=== PATIENT | male | born 1960 | race Caucasian/White ===

== ENCOUNTER 2017-08-27 14:50 | Emergency (ER) | payer SELFPAY ==
--- NOTE | 2017-08-27 15:58 | RAD ---
TWO VIEWS OF THE RIGHT WRIST: Date: 08-27-17 Comparison: 08-24-17 History: Fracture. FINDINGS: The previously noted distal right radial fracture is again noted. 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 There is resid ual impaction and dorsal angulation, also improved since the prior exam. There is no widening of the scapholunate interval. No new fracture is seen. The fracture of the distal radius likely extends into the distal ulnar joint and the radial carpal joint. IMPRESSION: Distal radial fracture with impaction and displacement/angulation as detailed above. POS: [facility]
== END 2017-08-27 16:54 | disposition home or self-care (01) ==
LOC: ERS 14:50
DX: S52.501A Unspecified fracture of the lower end of right radius, initial encounter for closed fracture (principal); F17.210 Nicotine dependence, cigarettes, uncomplicated; Z79.899 Other long term (current) drug therapy; X58.XXXA Exposure to other specified factors, initial encounter

== ENCOUNTER 2017-09-05 11:24 | Outpatient (CLI) | payer SELFPAY | END 2017-09-05 11:25 | disposition home or self-care (01) | LOC: LABBT 11:24 | PROVIDERS: ATTEND Orthopaedic Surgery | DX: Z01.818 Encounter for other preprocedural examination (principal); S52.501A Unspecified fracture of the lower end of right radius, initial encounter for closed fracture ==

== ENCOUNTER 2017-09-06 05:34 | Observation (INO) | payer SELFPAY ==
[2017-09-05 11:54] VITALS: BMI 27.3
[2017-09-06] MEDS ORDERED: Midazolam HCl 2 mg/2 ml Vial ONE ×2 (06:33→07:26)
[2017-09-06] MEDS ORDERED: Ropivacaine 0.2% HCl/PF 20 ML ONE (06:33)
[2017-09-06] MEDS ORDERED: Lidocaine 1% (PF) 30 ML VIAL ONE (06:33)
[2017-09-06] MEDS ORDERED: Fentanyl 100 MCG/2 ML VIAL ONE ×4 (06:33→10:28)
[2017-09-06] MEDS ORDERED: CEFAZOLIN/Water 2 GM/20 ML SYRINGE ONE (07:12)
[2017-09-06 07:18] LABS: Hematocrit 47.4 % (42.0-52.0); Mean Platelet Volume 8.2 fL (7.4-10.4); Red Blood Cell (RBC) Count 4.65 mill/uL (4.70-6.10); White Blood Cell (WBC) Count 7.2 thou/uL (4.8-10.8)
[2017-09-06 07:26] LABS: Prothrombin Time 14.3 SEC (12.0-14.7)
[2017-09-06] MEDS ORDERED: Fentanyl 250 MCG/5 ML VIAL ONE (07:26)
[2017-09-06 07:27] LABS: PTT 34.8 SEC (22.9-36.1)
[2017-09-06 07:42] LABS: ALT (SGPT) 31 U/L (8-55); AST (SGOT) 67 U/L (5-34); Alkaline Phosphatase 130 U/L (40-150); Bilirubin, Direct 0.4 mg/dL (0.1-0.3); Bilirubin, Total 1.2 mg/dL (0.2-1.2); Protein, Total 7.5 g/dL (6.0-8.3)
[2017-09-06] MEDS ORDERED: Bupivacaine/Epinephrine 0.25% 30 ML VIAL ONE (08:33)
[2017-09-06] MEDS ORDERED: Ondansetron ODT 4 MG TAB PO PRN (08:45)
[2017-09-06] MEDS ORDERED: Acetaminophen 325 MG TAB PO PRN (08:45)
[2017-09-06] MEDS ORDERED: Promethazine HCl 25 MG/ML VIAL SLOW IVP PRN (08:55)
[2017-09-06] MEDS ORDERED: Promethazine HCl 25 MG/ML VIAL IM PRN (08:55)
[2017-09-06] MEDS ORDERED: HYDROmorphone 2 MG/ML VIAL SLOW IVP PRN (08:55)
[2017-09-06] MEDS ORDERED: Ondansetron HCl/PF 4 MG/2 ML Vial IVP PRN (08:55)
--- NOTE | 2017-09-06 10:08 | OP ---
DATE OF OPERATION: 09/06/2017 OPERATION: Open reduction and internal fixation of right distal radius fracture. PREOPERATIVE DIAGNOSIS: Right distal radius fracture with displacement. POSTOPERATIVE DIAGNOSIS: Right distal radius fracture with displacement. COMPLICATIONS: None. ESTIMATED BLOOD LOSS: Minimal. SURGEON: Jeremias Smith M.D. ANESTHESIA: General. INDICATIONS: Mr. Smith is a 57-year-old male who fell. He sustained a fracture of the right distal radius with dorsal displacement. He was indicated for open reduction and internal fixation to restor e anatomic alignment and promote healing. Risks have been reviewed in detail. He has elected to pro ceed with the operation. Risks include infection, pain, scarring, bleeding, malunion, nonunion, hard tilley failure and others. DESCRIPTION OF PROCEDURE: Mr. Smith was identified in the preoperative holding area. His correct ex tremity was marked. He was carried to the operating room. He was positioned in supine. General ane sthesia was induced. A multidisciplinary timeout was performed. The right upper extremity was prepp ed and draped in the usual sterile fashion. Next, we began the procedure with a volar approach to th e distal radius. We dissected down through the subcutaneous tissues to the FCR tendon. The tendon s unique was opened. We then elevated the pronator quadratus tendon from the distal radius. This expos ed the underlying fracture. We mobilized the fracture with an elevator. We reduced the fracture jorge k into its anatomic position. We checked x-ray images confirming this. At this point, we applied a [employer] volar distal radius plate. A proximal screw was placed followed by multiple distal locking s crews. We took x-ray images. Finally, we finished the proximal screws. All hardware was appropriat e. We took final images and then thoroughly irrigated with copious lavage. At this point, we closed with 2-0 Vicryl suture followed by lester. A sterile dressing was applied. The patient was taken to the recovery room in good condition. IMPLANTS: [employer]ynthe[employer] volar distal radius plate was used, 3 hole.
--- NOTE | 2017-09-06 12:01 | RAD ---
RIGHT WRIST 2 VIEWS: Date: 09/06/17 HISTORY: Intraoperative films. FINDINGS: A distal radial fracture has been fixed with plate and screws. Alignment appears satisfactory. IMPRESSION: Open reduction and internal fixation of distal radial fracture with plate and screws. POS: [facility]
[2017-09-06] MEDS: CEFAZOLIN/Water 2 GM/20 ML SYRINGE SLOW IVP SCH ×2 (15:07→22:02)
[2017-09-06] MEDS ORDERED: Propofol 200 MG/20 ML VIAL ONE (15:13)
[2017-09-06] MEDS ORDERED: Lidocaine 1% PF 5 ML VIAL ONE (15:13)
[2017-09-06] MEDS ORDERED: Ondansetron HCl/PF 4 MG/2 ML Vial ONE (15:13)
[2017-09-06] MEDS ORDERED: Bupivacaine PF 0.5% 30 ML VIAL ONE (15:57)
[2017-09-07] MEDS: HYDROcodone/Acetaminophen 10/325 mg Tablet PO PRN ×2 (06:14→10:02)
[2017-09-07 08:52] VITALS: BP 118/73; TEMP 98.4
[2017-09-07] MEDS ORDERED: FLU VACC QS2017-18 36 mo. & older 0.5 ML SYRINGE IM ONE (09:00)
--- NOTE | 2017-09-09 12:32 | DIS ---
DATE OF ADMISSION: 09/06/2017 DATE OF DISCHARGE: 09/07/2017 HOSPITAL COURSE: Mr. Smith is a 57-year-old male who fractured his right distal radius. He underwen t open reduction and internal fixation of the distal radius fracture. He did well during and after s urgery. He had no transportation and so was admitted to the hospital overnight. He was comfortable and pain was controlled at the time of discharge. He was tolerating an oral diet. DISCHARGE INSTRUCTIONS: The patient was discharged to home in a splint. He will keep this clean and dry. Follow up in 10-14 days for splint removal and suture removal. He will have adequate pain con trol.
== END 2017-09-07 12:16 | disposition home or self-care (01) ==
LOC: SDC 05:34 → 3SE 11:35 → SURG B 11:54
PROVIDERS: ADMIT Orthopaedic Surgery; ATTEND Orthopaedic Surgery
PROC: 0PSH04Z Reposition Right Radius with Internal Fixation Device, Open Approach (ICD-10-PCS; principal; 2017-09-07)
DX: S52.531A Colles' fracture of right radius, initial encounter for closed fracture (principal); Z98.890 Other specified postprocedural states; W13.8XXD Fall from, out of or through other building or structure, subsequent encounter
CPT/HCPCS: 76001; 80076; 85027; 85610; 85730; 93005; 93010; 96374; 96376; C1713; G0378; J2001; J2250; J2405; J2704; J2795; J3010; S0020

== ENCOUNTER 2018-04-28 07:04 | Emergency (ER) | payer SELFPAY ==
[2018-04-28] MEDS ORDERED: HYDROcodone/Acetaminophen 5/325 mg Tablet ONE (07:19)
[2018-04-28] MEDS ORDERED: Cyclobenzaprine 10 MG TAB ONE (07:19)
== END 2018-04-28 07:29 | disposition home or self-care (01) ==
LOC: ERS 07:04
DX: M54.5 Low back pain (principal); F17.210 Nicotine dependence, cigarettes, uncomplicated
CPT/HCPCS: 99283

== ENCOUNTER 2018-04-29 07:47 | Emergency (ER) | payer SELFPAY ==
--- NOTE | 2018-04-29 10:01 | RAD ---
RIGHT HAND THREE VIEWS: HISTORY: Pain. Cannot extend first DIP. COMPARISON: None. FINDINGS: Prior plate and screw fixation fracture. There does appear to be intraarticular extension of the third from lateral screw and possibly into the radial carpal joint. Erosion of the ulnar styloi d. Mild negative ulnar variance. There are radiopaque foreign objects within the soft tissues, between the second and third metacarpal heads. IMPRESSION: 1. Radiopaque foreign body within the webbing between the second and third metacarpal heads, measuri ng approximately 3 mm. 2. Third from lateral screw possibly within the radioscaphoid articulation. POS: [facility]
== END 2018-04-29 10:19 | disposition home or self-care (01) ==
LOC: ERS 07:47
DX: M79.644 Pain in right finger(s) (principal); Z79.899 Other long term (current) drug therapy

== ENCOUNTER 2018-06-20 08:15 | Emergency (ER) | payer SELFPAY | END 2018-06-20 09:06 | disposition home or self-care (01) | LOC: ERS 08:15 | DX: L30.9 Dermatitis, unspecified (principal); F17.210 Nicotine dependence, cigarettes, uncomplicated | CPT/HCPCS: 99282 ==

== ENCOUNTER 2020-08-19 09:05 | Emergency (ER) | payer SELFPAY ==
[2020-08-19] MEDS ORDERED: Ketorolac Tromethamine 30 MG/ML VIAL ONE (10:10)
[2020-08-19] MEDS ORDERED: Acetaminophen 500 MG TAB ONE (10:10)
[2020-08-19 10:13] LABS: #Basophils 0.1 thou/uL (0.0-0.2); #Eosinphils 0.3 thou/uL (0.0-0.7); #Lymphocytes 2.3 thou/uL (1.20-3.40); #Monocytes 1.1 thou/uL (0.11-0.59); #Neutrophils 4.1 thou/uL (1.40-6.50); %Basophils 0.9 % (0.0-1.0); %Eosinophils 3.3 % (0.0-10.0); %Lymphocytes 29.6 % (21.0-51.0); %Monocytes 14.2 % (0.0-10.0); Hemoglobin 16.6 g/dL (14.0-18.0); Mean Corpuscular HGB CONC 33.1 g/dL (32.0-36.0); Mean Corpuscular Hemoglobin 33.2 pg (27.0-31.0); Mean Platelet Volume 8.5 fL (7.4-10.4); Platelet Count 177 thou/uL (130-400); Red Blood Cell (RBC) Count 5.01 mill/uL (4.70-6.10); White Blood Cell (WBC) Count 7.9 thou/uL (4.8-10.8)
[2020-08-19 10:19] LABS: ALT (SGPT) 26 U/L (8-55); AST (SGOT) 99 U/L (5-34); Albumin 3.2 g/dL (3.5-5.0); Alkaline Phosphatase 165 U/L (40-110); Anion Gap 13 mmol/L (10-20); BUN (Urea Nitrogen) 15 mg/dL (8.4-25.7); Bilirubin, Total 0.8 mg/dL (0.2-1.2); Calc. Creatinine Clearance 0 mL/min (70-130); Calcium 9.1 mg/dL (7.8-10.44); Carbon Dioxide 26 mmol/L (22-29); Chloride 101 mmol/L (98-107); Estimated GFR-MDRD Greater than 90; Globulin 5.5 g/dL (2.4-3.5); Glucose 87 mg/dL (70-105); Lipase 33 U/L (8-78); Potassium 4.6 mmol/L (3.5-5.1); Protein, Total 8.7 g/dL (6.0-8.3); Sodium 135 mmol/L (136-145)
--- NOTE | 2020-08-19 10:27 | RAD ---
XR Chest 1 View Portable History: Shortness of breath Comparison: None. Findings: Mild lung hypoinflation. Peripheral scar lower lobes. Heart size upper limits of normal. Va scular crowding along the hilum. No pneumothorax. Impression: 1. 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 2. Lung hypoinflation with spurious enlargement of the cardiac silhouette and vascular crowding.
[2020-08-19 10:38] LABS: Bilirubin Negative (Negative); Blood, Urine Negative (Negative); Clarity Clear (Clear); Glucose, Urine (Dipstick) Normal (Negative); Ketone, Urine Negative (Negative); Leukocyte Negative Leu/uL (Negative); Nitrite Negative (Negative); Protein, Urine (Dipstick) Negative (Neg-Trace); Specific Gravity, Urine 1.022 (1.002-1.036); Urobilinogen Normal mg/dL (Less than 2)
== END 2020-08-19 11:30 | disposition home or self-care (01) ==
LOC: ERS 09:05
DX: M54.6 Pain in thoracic spine (principal); G89.29 Other chronic pain; F17.210 Nicotine dependence, cigarettes, uncomplicated; B19.20 Unspecified viral hepatitis C without hepatic coma
CPT/HCPCS: 71045; 80053; 81003; 83690; 84484; 85025; 85379; 93005; 94760; 96374; J1885

== ENCOUNTER 2021-04-05 09:03 | Inpatient (IN) | payer SELFPAY ==
[2021-04-05 09:57] LABS: #Basophils 0.1 thou/uL (0.0-0.2); #Eosinphils 0.4 thou/uL (0.0-0.7); #Lymphocytes 3.3 thou/uL (1.20-3.40); #Monocytes 1.3 thou/uL (0.11-0.59); %Basophils 0.8 % (0.0-1.0); %Eosinophils 3.2 % (0.0-10.0); %Lymphocytes 27.3 % (21.0-51.0); %Monocytes 11.1 % (0.0-10.0); %Neutrophils 57.6 % (42.0-75.0); Hemoglobin 14.8 g/dL (14.0-18.0); Mean Corpuscular HGB CONC 33.2 g/dL (32.0-36.0); Mean Corpuscular Hemoglobin 34.6 pg (27.0-31.0); Mean Platelet Volume 8.3 fL (7.4-10.4); Platelet Count 210 thou/uL (130-400); RBC Distribution Width 13.2 % (11.5-14.5); Red Blood Cell (RBC) Count 4.28 mill/uL (4.70-6.10); White Blood Cell (WBC) Count 12.1 thou/uL (4.8-10.8)
[2021-04-05 10:17] LABS: ALT (SGPT) 23 U/L (8-55); AST (SGOT) 144 U/L (5-34); Albumin 2.4 g/dL (3.4-4.8); Alkaline Phosphatase 137 U/L (40-110); Anion Gap 13 mmol/L (10-20); BUN (Urea Nitrogen) 44 mg/dL (8.4-25.7); Bilirubin, Total 1.2 mg/dL (0.2-1.2); Calc. Creatinine Clearance 0 mL/min (70-130); Calcium 8.3 mg/dL (7.8-10.44); Carbon Dioxide 22 mmol/L (23-31); Chloride 107 mmol/L (98-107); Globulin 4.6 g/dL (2.4-3.5); Glucose 86 mg/dL (80-115); Potassium 5.7 mmol/L (3.5-5.1); Sodium 136 mmol/L (136-145)
[2021-04-05] MEDS ORDERED: Pantoprazole 40 MG VIAL ONE (13:09)
[2021-04-05 13:27] LABS: Bilirubin Negative (Negative); Blood, Urine Negative (Negative); Clarity Clear (Clear); Glucose, Urine (Dipstick) Normal (Negative); Ketone, Urine 10 mg/dL (Negative); Leukocyte Negative Leu/uL (Negative); Nitrite Negative (Negative); Protein, Urine (Dipstick) Negative (Neg-Trace); Specific Gravity, Urine 1.032 (1.002-1.036); Urobilinogen Normal mg/dL (Less than 2)
[2021-04-05] MEDS ORDERED: Ondansetron ODT 4 MG TAB PO PRN (14:30)
[2021-04-05] MEDS ORDERED: Ondansetron PF 4 MG/2 ML Vial IVP PRN (14:30)
[2021-04-05 14:54] LABS: Amphetamine Detected (NotDetected); Benzodiazepine Screen Not Detected (NotDetected); Cocaine Metabolite Screen Not Detected (NotDetected); Medtox Reader # READER 4; Methadone Not Detected (NotDetected); Methamphetamine Detected (NotDetected); Opiate Screen Not Detected (NotDetected); Phencyclidine (PCP) Not Detected (NotDetected); THC/Cannabinoid Screen Not Detected (NotDetected); Tricyclic Screen Not Detected (NotDetected)
[2021-04-05 14:55] LABS: Barbiturates Screen Not Detected (NotDetected); Medtox Control Line Valid? VALID (VALID); Oxycodone Screen Not Detected (NotDetected)
[2021-04-05 15:00] LABS: Hemoglobin 14.2 g/dL (14.0-18.0)
[2021-04-05 15:11] LABS: INR-International Normal Ratio 1.2; PTT 36.6 sec (22.9-36.1); Prothrombin Time 15.2 sec (12.0-14.7)
[2021-04-05 15:38] LABS: Magnesium 1.5 mg/dL (1.6-2.6); Phosphorus 2.6 mg/dL (2.3-4.7)
[2021-04-05] MEDS ORDERED: Magnesium 2 GM/50 ML 2 GM in Premix Bag 1 BAG IVPB SCH (16:00)
[2021-04-05] MEDS ORDERED: Magnesium 2 GM/50 ML BAG (IN WATER) ONE (18:04)
[2021-04-05] MEDS: Sodium Chloride 0.9% 1,000 ML IV SCH (19:30)
[2021-04-05 20:28] LABS: SARS-CoV-2 NAA Rapid Test Not Detected (NotDetected)
[2021-04-05 20:28] LABS: Hemoglobin 13.4 g/dL (14.0-18.0)
[2021-04-05 22:27] VITALS: BMI 25.9
[2021-04-05] MEDS: Pantoprazole 40 MG VIAL IVP SCH (22:30)
[2021-04-06] MEDS: Sodium Chloride 0.9% 1,000 ML IV SCH (04:43)
[2021-04-06 05:21] LABS: #Basophils 0.1 thou/uL (0.0-0.2); #Eosinphils 0.4 thou/uL (0.0-0.7); #Lymphocytes 4.9 thou/uL (1.20-3.40); %Basophils 1.1 % (0.0-1.0); %Eosinophils 3.1 % (0.0-10.0); %Lymphocytes 39.3 % (21.0-51.0); %Monocytes 8.2 % (0.0-10.0); %Neutrophils 48.3 % (42.0-75.0); Hemoglobin 12.3 g/dL (14.0-18.0); Mean Corpuscular HGB CONC 34.1 g/dL (32.0-36.0); Mean Corpuscular Hemoglobin 35.3 pg (27.0-31.0); Mean Platelet Volume 8.1 fL (7.4-10.4); Platelet Count 191 thou/uL (130-400); RBC Distribution Width 13.2 % (11.5-14.5); White Blood Cell (WBC) Count 12.5 thou/uL (4.8-10.8)
[2021-04-06 05:45] LABS: ALT (SGPT) 25 U/L (8-55); AST (SGOT) 226 U/L (5-34); Albumin 2.1 g/dL (3.4-4.8); Alkaline Phosphatase 119 U/L (40-110); Anion Gap 11 mmol/L (10-20); BUN (Urea Nitrogen) 37 mg/dL (8.4-25.7); Calc. Creatinine Clearance 105 mL/min (70-130); Calcium 8.1 mg/dL (7.8-10.44); Carbon Dioxide 22 mmol/L (23-31); Chloride 110 mmol/L (98-107); Globulin 3.9 g/dL (2.4-3.5); Glucose 83 mg/dL (80-115); Potassium 4.8 mmol/L (3.5-5.1); Sodium 138 mmol/L (136-145)
[2021-04-06] MEDS ORDERED: Acetaminophen 500 MG TAB PO PRN (08:08)
[2021-04-06] MEDS ORDERED: Senokot S 8.6-50 MG TAB PO PRN (08:08)
[2021-04-06] MEDS ORDERED: HYDROcodone/Acetaminophen 5/325 mg Tablet PO PRN (08:08)
[2021-04-06] MEDS ORDERED: Loratadine 10 MG TAB PO PRN (08:08)
[2021-04-06] MEDS ORDERED: Calcium Carbonate 500 MG ChewTAB PO PRN (08:08)
[2021-04-06] MEDS ORDERED: Loperamide HCl 2 MG CAP PO PRN (08:08)
[2021-04-06] MEDS ORDERED: hydrALAZINE 20 MG/ML VIAL SLOW IVP PRN (08:08)
[2021-04-06] MEDS ORDERED: Temazepam 15 MG CAP PO PRN (08:08)
[2021-04-06] MEDS ORDERED: Bisacodyl 5 MG TAB PO PRN (08:08)
[2021-04-06] MEDS ORDERED: GUAIFENESIN SF SOLN 200 MG/10 ML UDCUP PO PRN (08:08)
[2021-04-06] MEDS ORDERED: Cepastat Lozenges 1 LOZ PO PRN (08:08)
[2021-04-06] MEDS ORDERED: Sodium Chloride 0.65% Nasal 44 ML BOT EA NARE PRN (08:08)
[2021-04-06] MEDS ORDERED: Lorazepam 2 MG/ML VIAL IM PRN (09:07)
[2021-04-06] MEDS ORDERED: Lorazepam 1 MG TAB PO PRN (09:07)
[2021-04-06] MEDS ORDERED: Lorazepam 2 MG/ML VIAL SLOW IVP PRN (09:07)
[2021-04-06] MEDS: Cyanocobalamin (Vitamin B-12) 1,000 MCG TAB PO SCH (10:22)
[2021-04-06] MEDS: Folic Acid 1 MG TAB PO SCH (10:22)
[2021-04-06] MEDS: Thiamine 100 MG TAB PO SCH (10:22)
[2021-04-06] MEDS: Pantoprazole 40 MG VIAL IVP SCH (10:26)
[2021-04-07 05:19] LABS: #Basophils 0.1 thou/uL (0.0-0.2); #Eosinphils 0.3 thou/uL (0.0-0.7); #Lymphocytes 3.2 thou/uL (1.20-3.40); #Monocytes 1.1 thou/uL (0.11-0.59); #Neutrophils 5.2 thou/uL (1.40-6.50); %Basophils 0.7 % (0.0-1.0); %Eosinophils 3.1 % (0.0-10.0); %Lymphocytes 32.6 % (21.0-51.0); %Monocytes 11.1 % (0.0-10.0); %Neutrophils 52.5 % (42.0-75.0); Hemoglobin 11.2 g/dL (14.0-18.0); Mean Corpuscular HGB CONC 33.4 g/dL (32.0-36.0); Mean Corpuscular Hemoglobin 34.3 pg (27.0-31.0); Mean Platelet Volume 8.4 fL (7.4-10.4); Platelet Count 169 thou/uL (130-400); Red Blood Cell (RBC) Count 3.26 mill/uL (4.70-6.10); White Blood Cell (WBC) Count 9.8 thou/uL (4.8-10.8)
[2021-04-07 05:46] LABS: ALT (SGPT) 20 U/L (8-55); AST (SGOT) 191 U/L (5-34); Albumin 2.3 g/dL (3.4-4.8); Alkaline Phosphatase 121 U/L (40-110); Anion Gap 11 mmol/L (10-20); BUN (Urea Nitrogen) 28 mg/dL (8.4-25.7); Bilirubin, Total 0.8 mg/dL (0.2-1.2); Calc. Creatinine Clearance 96 mL/min (70-130); Calcium 7.8 mg/dL (7.8-10.44); Carbon Dioxide 20 mmol/L (23-31); Chloride 109 mmol/L (98-107); Globulin 3.9 g/dL (2.4-3.5); Glucose 105 mg/dL (80-115); Magnesium 1.6 mg/dL (1.6-2.6); Phosphorus 2.8 mg/dL (2.3-4.7); Potassium 3.8 mmol/L (3.5-5.1); Protein, Total 6.2 g/dL (5.8-8.1); Sodium 136 mmol/L (136-145)
[2021-04-07 07:58] VITALS: BP 92/53; TEMP 98.5
[2021-04-07] MEDS: Thiamine 100 MG TAB PO SCH (09:53)
[2021-04-07] MEDS: Folic Acid 1 MG TAB PO SCH (09:53)
[2021-04-07] MEDS: Cyanocobalamin (Vitamin B-12) 1,000 MCG TAB PO SCH (09:53)
== END 2021-04-07 12:05 | disposition home or self-care (01) | DRG 917 ==
LOC: ERS 09:03 → ERHOLD 14:46 → 2SE 21:40
PROVIDERS: ADMIT Family Medicine; ATTEND Internal Medicine
DX: T51.0X1A Toxic effect of ethanol, accidental (unintentional), initial encounter (principal); K29.71 Gastritis, unspecified, with bleeding; Z20.822 Contact with and (suspected) exposure to COVID-19; F17.210 Nicotine dependence, cigarettes, uncomplicated; F10.10 Alcohol abuse, uncomplicated; E87.5 Hyperkalemia; F15.10 Other stimulant abuse, uncomplicated; B18.2 Chronic viral hepatitis C; Z71.51 Drug abuse counseling and surveillance of drug abuser
CPT/HCPCS: 0240U; 36415; 80053; 80306; 81003; 82607; 82746; 83735; 84100; 85025; 85610; 85730; 86850; 86900; 86901; 96374; C9113; J3475

== ENCOUNTER 2021-06-25 19:21 | Inpatient (IN) | payer SELFPAY ==
[~2021-06-25 19:21] MED LIST: Iopamidol-370 76% 500 ML 1 ML ONE
[2021-06-25 20:45] LABS: #Basophils 0.1 thou/uL (0.0-0.2); #Eosinphils 0.1 thou/uL (0.0-0.7); #Lymphocytes 2.4 thou/uL (1.20-3.40); #Monocytes 0.8 thou/uL (0.11-0.59); #Neutrophils 5.6 thou/uL (1.40-6.50); %Basophils 0.8 % (0.0-1.0); %Eosinophils 1.4 % (0.0-10.0); %Lymphocytes 27.1 % (21.0-51.0); %Monocytes 8.6 % (0.0-10.0); %Neutrophils 62.2 % (42.0-75.0); Hemoglobin 11.6 g/dL (14.0-18.0); INR-International Normal Ratio 1.1; Mean Corpuscular HGB CONC 29.8 g/dL (32.0-36.0); Mean Corpuscular Volume 90.7 fL (78.0-98.0); Platelet Count 376 thou/uL (130-400); Prothrombin Time 14.7 sec (12.0-14.7); RBC Distribution Width 20.9 % (11.5-14.5)
[2021-06-25 20:57] LABS: ALT (SGPT) 11 U/L (8-55); AST (SGOT) 247 U/L (5-34); Albumin 2.1 g/dL (3.4-4.8); Alkaline Phosphatase 353 U/L (40-110); Anion Gap 12 mmol/L (10-20); BUN (Urea Nitrogen) 15 mg/dL (8.4-25.7); Bilirubin, Total 1.3 mg/dL (0.2-1.2); Calc. Creatinine Clearance 0 mL/min (70-130); Carbon Dioxide 23 mmol/L (23-31); Chloride 104 mmol/L (98-107); Globulin 5.7 g/dL (2.4-3.5); Glucose 138 mg/dL (80-115); Potassium 4.2 mmol/L (3.5-5.1); Protein, Total 7.8 g/dL (5.8-8.1); Sodium 135 mmol/L (136-145)
[2021-06-25] MEDS ORDERED: Morphine 4 MG/ML VIAL ONE (22:40)
[2021-06-25] MEDS ORDERED: Furosemide 20 MG/2 ML VIAL ONE (22:41)
[2021-06-25] MEDS ORDERED: Enoxaparin Sodium 80 MG/0.8 ML SYRINGE SC SCH (22:45)
[2021-06-25] MEDS ORDERED: Bisacodyl 10 MG SUPP PR PRN (22:54)
[2021-06-25] MEDS ORDERED: Acetaminophen 325 MG TAB PO PRN (22:54)
[2021-06-25] MEDS ORDERED: Communication Order-Pharmacy FS PRN (22:54)
[2021-06-25] MEDS ORDERED: Ondansetron PF 4 MG/2 ML Vial IVP PRN (22:54)
[2021-06-25] MEDS ORDERED: hydrALAZINE 20 MG/ML VIAL SLOW IVP PRN (23:00)
[2021-06-25] MEDS ORDERED: Morphine 2 MG/ML VIAL SLOW IVP PRN (23:00)
[2021-06-25] MEDS ORDERED: hydrOXYzine 25 MG TAB PO PRN (23:05)
[2021-06-25] MEDS ORDERED: Enoxaparin Sodium 80 MG/0.8 ML SYRINGE ONE (23:18)
[2021-06-25] MEDS ORDERED: Albuterol Sulfate 1.25 MG/3 ML NEB NEB PRN (23:52)
[2021-06-26] MEDS: Morphine 2 MG/ML VIAL SLOW IVP PRN ×2 (04:30→21:04)
[2021-06-26 05:03] VITALS: BMI 28.0
[2021-06-26] MEDS: Nicotine 21 MG PATCH TD SCH ×2 (05:37→10:38)
[2021-06-26 08:37] LABS: #Basophils 0.1 thou/uL (0.0-0.2); #Eosinphils 0.1 thou/uL (0.0-0.7); #Lymphocytes 2.4 thou/uL (1.20-3.40); #Monocytes 0.7 thou/uL (0.11-0.59); #Neutrophils 5.8 thou/uL (1.40-6.50); %Basophils 0.7 % (0.0-1.0); %Eosinophils 1.3 % (0.0-10.0); %Lymphocytes 26.4 % (21.0-51.0); %Monocytes 7.2 % (0.0-10.0); %Neutrophils 64.4 % (42.0-75.0); Mean Corpuscular HGB CONC 30.9 g/dL (32.0-36.0); Mean Corpuscular Hemoglobin 27.6 pg (27.0-31.0); Mean Corpuscular Volume 89.3 fL (78.0-98.0); Mean Platelet Volume 7.8 fL (7.4-10.4); Platelet Count 337 thou/uL (130-400); RBC Distribution Width 20.3 % (11.5-14.5); Red Blood Cell (RBC) Count 3.97 mill/uL (4.70-6.10)
[2021-06-26 08:56] LABS: ALT (SGPT) 11 U/L (8-55); AST (SGOT) 229 U/L (5-34); Albumin 1.9 g/dL (3.4-4.8); Alkaline Phosphatase 317 U/L (40-110); Anion Gap 12 mmol/L (10-20); BUN (Urea Nitrogen) 15 mg/dL (8.4-25.7); Bilirubin, Total 1.8 mg/dL (0.2-1.2); Calc. Creatinine Clearance 128 mL/min (70-130); Calcium 7.9 mg/dL (7.8-10.44); Carbon Dioxide 23 mmol/L (23-31); Chloride 104 mmol/L (98-107); Globulin 5.1 g/dL (2.4-3.5); Glucose 87 mg/dL (80-115); Potassium 4.2 mmol/L (3.5-5.1); Sodium 135 mmol/L (136-145)
[2021-06-26] MEDS: Enoxaparin Sodium 100 MG/ML SYRINGE SC SCH ×2 (10:35→20:54)
[2021-06-26 13:16] LABS: SARS-CoV-2 PCR by NAA Not Detected (NotDetected)
[2021-06-27] MEDS: Enoxaparin Sodium 100 MG/ML SYRINGE SC SCH ×2 (08:13→21:00)
[2021-06-27 08:44] LABS: ALT (SGPT) 10 U/L (8-55); AST (SGOT) 233 U/L (5-34); Albumin 1.9 g/dL (3.4-4.8); Alkaline Phosphatase 330 U/L (40-110); Anion Gap 12 mmol/L (10-20); BUN (Urea Nitrogen) 17 mg/dL (8.4-25.7); Bilirubin, Total 1.7 mg/dL (0.2-1.2); Calc. Creatinine Clearance 123 mL/min (70-130); Calcium 7.9 mg/dL (7.8-10.44); Carbon Dioxide 23 mmol/L (23-31); Chloride 103 mmol/L (98-107); Globulin 5.2 g/dL (2.4-3.5); Glucose 116 mg/dL (80-115); Protein, Total 7.1 g/dL (5.8-8.1); Sodium 134 mmol/L (136-145)
[2021-06-27] MEDS ORDERED: Warfarin Sodium 7.5 MG TAB PO SCH (17:45)
[2021-06-27 18:18] LABS: INR-International Normal Ratio 1.2; Prothrombin Time 15.5 sec (12.0-14.7)
[2021-06-27] MEDS: Morphine 2 MG/ML VIAL SLOW IVP PRN (19:28)
[2021-06-27] MEDS: Nicotine 21 MG PATCH TD SCH (21:00)
[2021-06-28] MEDS: Morphine 2 MG/ML VIAL SLOW IVP PRN ×2 (04:30→09:55)
[2021-06-28 05:04] LABS: INR-International Normal Ratio 1.2; Prothrombin Time 15.1 sec (12.0-14.7)
[2021-06-28] MEDS ORDERED: Apixaban 5 MG TAB PO SCH (09:00)
[2021-06-28 10:14] VITALS: BP 116/74; TEMP 99.1
[2021-06-28] MEDS ORDERED: Warfarin Sodium 7.5 MG TAB PO SCH (17:00)
== END 2021-06-28 15:45 | disposition home or self-care (01) | DRG 435 ==
LOC: ERS 19:21 → SURG B 23:32 → ONC 06-27 02:22
PROVIDERS: ADMIT Internal Medicine; ATTEND Internal Medicine
DX: C22.0 Liver cell carcinoma (principal); I81 Portal vein thrombosis; C78.01 Secondary malignant neoplasm of right lung; C79.51 Secondary malignant neoplasm of bone; Z20.822 Contact with and (suspected) exposure to COVID-19; B18.2 Chronic viral hepatitis C; F19.11 Other psychoactive substance abuse, in remission; Z79.899 Other long term (current) drug therapy
CPT/HCPCS: 36415; 71045; 74177; 76705; 80053; 82105; 82140; 83880; 84484; 85025; 85610; 93005; 96372; 96374; 96375; J1650; J1940; J2270; Q9967; U0003; U0005